=== PATIENT | male | born 1950 ===

== ENCOUNTER 2023-12-24 06:15 | Day surgery (SDC) | payer OTHER ==
[2023-12-17 08:20] LABS: URINE APPEARANCE Cloudy; URINE BILIRRUBIN Negative (NEGATIVE); URINE BLOOD Negative; URINE COLOR Yellow; URINE GLUCOSE Negative (NEGATIVE); URINE LEUKOCYTE Negative; URINE NITRATE Negative; URINE PROTEIN Negative (NEGATIVE)
[2023-12-17 08:24] LABS: URINE BACTERIA 6.2 uL (0.0-1933)
[2023-12-17 08:27] LABS: HEMATOCRIT 43.1 % (39.0-48.0); HEMOGLOBIN 14.8 g/dL (13-16.00); MEAN CELL VOLUME 92.8 fL (80.0-100.00); MEAN CORPUSCULAR HEMOGLOBIN 31.8 pg (27.00-32.0); MEAN CORPUSCULAR HGB CONC 34.2 g/dl (32.0-36.0); PLATELET COUNT 187 K/uL (150-450); RED BLOOD COUNT 4.64 M/uL (4.00-6.00); RED CELL DISTRIBUTION WIDTH 14.3 % (11.5-14.5)
[2023-12-17 08:40] LABS: INR 1.05; PARTIAL THROMBOPLASTIN TIME 30.2 SECONDS (22.0-34.0); URINE EPITHELIAL CELLS 0.4 uL (0.0-38.8); URINE WBC 0.4 uL (0.0-23.2)
[2023-12-17 08:47] LABS: BILIRUBIN TOTAL 0.92 mg/dL (0.3-1.2); CALCIUM 9.2 mg/dL (8.5-10.1); CREATININE SERUM 0.65 mg/dL (0.70-1.30); GFR 120.41; GLOBULINA 3.4 G/DL (2.4-3.5); POTASSIUM 4.28 mEq/L (3.5-5.1); TOTAL PROTEIN 7.4 gm/dL (6.4-8.2)
[2023-12-24] MEDS ORDERED: CEFAZOLIN SODIUM 1,000 MG VIAL ONE ×2 (08:06→14:10)
[2023-12-24] MEDS ORDERED: CEFAZOLIN SODIUM 1,000 MG VIAL IV ONE (11:30)
[2023-12-24] MEDS ORDERED: FAMOTIDINE/PF 20 MG/10 ML SYRINGE IV SCH (13:00)
[2023-12-24] MEDS ORDERED: CEFAZOLIN SODIUM 1,000 MG VIAL IV SCH (13:00)
[2023-12-24] MEDS ORDERED: RINGERS SOLUTION,LACTATED 1,000 ML IV SCH (13:00)
[2023-12-24] MEDS ORDERED: FAMOTIDINE/PF 20 MG/2 ML VIAL ONE (14:10)
== END 2023-12-24 16:10 | disposition home or self-care (01) ==
LOC: CIR.AMB 06:15
PROVIDERS: ATTEND Specialist
DX: K40.90 Unilateral inguinal hernia, without obstruction or gangrene, not specified as recurrent (principal); Z20.822 Contact with and (suspected) exposure to COVID-19; I10 Essential (primary) hypertension
CPT/HCPCS: 49505; C1781